=== PATIENT | male | born 2000 | race Caucasian/White ===

== ENCOUNTER 2021-11-22 14:04 | Emergency (ER) | payer OTHER ==
[~2021-11-22] VITALS: Ht 167.6 cm; Wt 127.0 kg
[2021-11-22 14:04] VITALS: BP 137/78
[2021-11-22] MEDS ORDERED: IBUPROFEN 600 MG TABLET PO ONE (15:00)
[2021-11-22] MEDS ORDERED: IBUPROFEN 600 MG TABLET ONE (15:23)
[2021-11-22] MEDS ORDERED: IBUP-1957 PO (15:45)
== END 2021-11-22 15:49 | disposition home or self-care (01) ==
LOC: ER 14:14
DX: M79.671 Pain in right foot (principal)
CPT/HCPCS: 73630-TC